=== PATIENT | male | born 2000 | race Caucasian/White ===

== ENCOUNTER 2021-09-11 13:51 | Outpatient (CLI) | payer OTHER, MEDICAID, SELFPAY | END 2021-09-11 13:52 | disposition home or self-care (01) | LOC: RAD 13:55 | PROVIDERS: PCP Physician Assistant; Visit Provider Physician Assistant | DX: R07.9 Chest pain, unspecified (principal); R00.2 Palpitations; Z82.49 Family history of ischemic heart disease and other diseases of the circulatory system | CPT/HCPCS: 93306 ==